=== PATIENT | female | born 1995 | race Caucasian/White ===

== ENCOUNTER 2016-08-10 22:57 | Outpatient (CLI) | END 2016-08-10 22:58 | LOC: AMBL 22:57 | PROVIDERS: ATTEND Internal Medicine Geriatric Medicine | DX: R56.9 Unspecified convulsions (principal); R51 Headache; F32.9 Major depressive disorder, single episode, unspecified; Z33.1 Pregnant state, incidental; W19.XXXA Unspecified fall, initial encounter ==